=== PATIENT | female | born 1950 | race Caucasian/White ===

== ENCOUNTER 2022-05-29 11:15 | Outpatient (RCR) | payer MEDICARE, OTHER, SELFPAY ==
--- NOTE | 2022-03-20 12:39 | PTOPEVAL1 ---
Assessment and note entered by Cassidy Parrish, PT, DPT Evaluation Information Assessment Status Evaluation Diagnosis neck pain Onset ~1 month Subjective Information Pt states a couple of weeks ago she had shooting and stabbing pain into the neck and into the shoulders. She states she has a shooting pain that goes up into her head. She reports tightness in her shoulders. She declines further radiating symptoms. She was given muscle relaxers and this seemed to help. Reported Pain Level Pain Score 5: Self Report Assessment PT Clinical Summary Jeanie is a 71 y/o female who presents to therapy today with a diagnosis of cervicalgia. Today she demonstrates decreased active cervical ROM in all direction but with near normal passive cervical ROM. She demonstrates forward and rounded shoulder with a forward head and increased upper cervical hyperextension. She reports pain at the base of her skull on the L side. Skilled physical therapy services are indicated to address the deficits noted above, to improve pain, to monitor HEP, and to return to baseline function. Plan of Care Interventions Electrical Stimulation,Hot Pack/Cold Pack,Manual Therapy,Neuro Re-education,Patient/Caregiver Educati,Therapeutic Activities,Therapeutic Exercise PT Services Indicated Yes Treatment Frequency and 1x/wk for 6 wks Duration These treatments will address the objective and functional deficits as defined above. The patient will be advanced safely and appropriately in order for the patient to progress towards his/her prior level of function. Additional exercises will be introduced and as well as a comprehensive home exercise program upon discharge, if needed, ?to ensure carryover of functional gains achieved in the clinic. This treatment plan has been reviewed and agreement upon by the patient.
--- NOTE | 2022-05-03 15:30 | BUPTOPEVAL1 ---
Assessment and note entered by Madeline Soriano, PT Assessment Status Re-evaluation Diagnosis neck pain Onset ~1 month Subjective Information Pt reports had gone multiple weeks without shooting pain into head until after last treatment had the sharp shooting pain again to both sides. Had to take a muscle relaxer that night and Ibuprofen, was back to normal in 2-3 days. Reports flare up wasn't as bad as original issue , felt 60% improved overall prior to flare up Assessment PT Clinical Summary Pt reports overall improvement prior to recent flare up after last therapy session. Demo's foundational deficits related pelvic alignment and compensatory scoliotic curvatures which may be effecting overall cervical alignment and muscle tension. Demo's overall improved muscle tone and cervical ROM, however cont to demo compensatory flexion at end range of left rotation and left lateral flexion. Discussed with patient continuation of therapy to address foundational alignment and continue mobilization of cervical spine. Pt concerned about insurance paying for continuation of therapy. Opted to decrease frequency to 1x every 1-2 weeks up to 6 visits. Also pt notes her busy schedule with holidays coming up. Advised pt would pursue decreased frequency but would be able to increase to weekly if she feels it is necessary. Plan of Care Interventions Electrical Stimulation,Hot Pack/Cold Pack,Manual Therapy,Neuro Re-education,Patient/Caregiver Educati,Therapeutic Activities,Therapeutic Exercise PT Services Indicated Yes Treatment Frequency and 1x/wk for 6 wks Duration These treatments will address the objective and functional deficits as defined above. The patient will be advanced safely and appropriately in order for the patient to progress towards his/her prior level of function. Additional exercises will be introduced and as well as a comprehensive home exercise program upon discharge, if needed, ?to ensure carryover of functional gains achieved in the clinic. This treatment plan has been reviewed and agreement upon by the patient.
--- NOTE | 2022-05-29 16:39 | BUPTOPDC ---
Assessment and note entered by Madeline Soriano, PT Assessment Status Discharge Diagnosis neck pain Onset ~1 month Subjective Information Pt reports her neck has been feeling great since her last visit. Reports feeling 100% improved from the beginning of therapy, also no longer wakes up at night d/t pain. Reported Pain Level Pain Score 0: Self Report Assessment PT Clinical Summary Pt has participated consistently in her therapy and recently at a reduced rate. Reports doing well with her exercises at home, monitoring her posture kelsie with driving. Cont to demo decreased ROM and (+) tone left upper trap especially, but all subjective goals related to pain and function have been met. She has been educated on when to return to therapy if it is needed as well as follow up recommendations to maintain her progress . Thus pt is being discharged from therapy services at this time. Plan of Care PT Services Indicated Not at this time
== END 2022-05-31 11:26 | disposition home or self-care (01) ==
LOC: ANHHIPT 11:15
PROVIDERS: PCP Family Medicine; Visit Provider Family Medicine
DX: M54.2 Cervicalgia (principal)
CPT/HCPCS: 97110; 97112; 97140; 97161

== ENCOUNTER 2023-03-28 10:00 | Outpatient (RCR) | payer MEDICARE, OTHER, SELFPAY | END 2023-03-28 23:59 | disposition home or self-care (01) | LOC: ANHAUDIO 10:00 | PROVIDERS: PCP Physician Assistant Medical; Visit Provider Physician Assistant Medical | DX: Z46.1 Encounter for fitting and adjustment of hearing aid (principal) | CPT/HCPCS: 99199; V5257 ==

== ENCOUNTER 2024-08-14 10:30 | Outpatient (RCR) | payer SELFPAY | END 2024-08-14 23:59 | disposition home or self-care (01) | LOC: ANHAUDIO 10:30 | PROVIDERS: PCP Physician Assistant Medical; Visit Provider Physician Assistant Medical | DX: Z46.1 Encounter for fitting and adjustment of hearing aid (principal) | CPT/HCPCS: 99199; V5257 ==